=== PATIENT | male | born 1975 | race American Indian/Alaskan Native ===

== ENCOUNTER 2016-10-08 03:03 | Emergency (ER) | payer SELFPAY ==
[2016-10-08] MEDS ORDERED: LEVOPHED DRIP 4 MG/NS 250 ML 4 MG/250 ML BAG IV ONE (03:22)
[2016-10-08] MEDS ORDERED: NACL 0.9% 1000 ML 1,000 ML ONE (03:23)
[2016-10-08] MEDS ORDERED: VERSED IV ONE (03:32)
[2016-10-08] MEDS ORDERED: ARTIFICIAL TEARS OPHTH OINT OU PRN (03:34)
[2016-10-08] MEDS ORDERED: VASELINE LIP THERAPY TP PRN (03:34)
[2016-10-08 03:36] LABS: Basophils % (Auto) 0.5 % (0.0-1.8); Eosinophils % (Auto) 0.2 % (0.0-4.3); Hematocrit 35.4 % (35.5-45.6); Hemoglobin 11.5 gm/dl (11.8-15.2); Mean Corpuscular HGB Conc 33 % (32-34); Mean Corpuscular Hemoglobin 30 pg (28-32); Mean Corpuscular Volume 92 fl (84-94); Red Blood Count 3.86 M/mm3 (3.65-5.03); Red Cell Distribution Width 14.4 % (13.2-15.2); White Blood Count 9.3 K/mm3 (4.5-11.0)
[2016-10-08] MEDS ORDERED: NACL 0.9% 1000 ML 1,000 ML IV ONE ×2 (03:37→04:30)
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
[2016-10-08 03:41] LABS: INR 1.54 (0.87-1.13)
[2016-10-08 03:42] LABS: Partial Thromboplastin Time 49.3 Sec. (24.2-36.6)
[2016-10-08 03:48] LABS: Alanine Aminotransferase 17 units/L (7-56); Albumin 3.3 g/dL (3.9-5); Albumin/Globulin Ratio 1.5 %; Alkaline Phosphatase 35 units/L (35-129); Anion Gap 25 mmol/L; BUN/Creatinine Ratio 6.66; Blood Urea Nitrogen 10 mg/dL (9-20); Calcium 7.6 mg/dL (8.4-10.2); Carbon Dioxide 16 mmol/L (22-30); Chloride 103.6 mmol/L (98-107); Creatine Kinase 623 units/L (55-170); Glucose 180 mg/dL (75-100); Potassium 3.6 mmol/L (3.6-5.0); Sodium 141 mmol/L (137-145); Total Protein 5.5 g/dL (6.3-8.2)
[2016-10-08 03:52] LABS: Platelet Count 129 K/mm3 (140-440)
[2016-10-08] MEDS ORDERED: VERSED IV SCH (04:00)
[2016-10-08] MEDS ORDERED: NACL 0.9% 500 ML IV SCH (04:00)
[2016-10-08] MEDS ORDERED: LEVOPHED DRIP 4 MG/NS 250 ML 4 MG/250 ML BAG IV SCH (04:00)
[2016-10-08] MEDS ORDERED: MIDAZOLAM 100 MG in NACL 0.9% 80 ML IV SCH (04:00)
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
[2016-10-08 04:55] VITALS: BP 104/59
--- NOTE | 2016-10-08 08:52 | XRay Report ---
AP CHEST: HISTORY: Chest pain, trauma No comparison. An endotracheal tube has been inserted which terminates 4 cm superior to the brenna. A nasogastric tube is followed to the fundus of the stomach. Cardiac defibrillator pads are in place. Heart and mediastinal structures are within normal limits. The lungs are clear. No bony deformity is detected. IMPRESSION: Unremarkable AP chest.
== END 2016-10-08 05:00 | disposition other institution (70) ==
LOC: ED 03:03
DX: S01.90XA Unspecified open wound of unspecified part of head, initial encounter (principal); R57.9 Shock, unspecified; I95.9 Hypotension, unspecified; F17.200 Nicotine dependence, unspecified, uncomplicated; W34.00XA Accidental discharge from unspecified firearms or gun, initial encounter; Y93.89 Activity, other specified; Y99.9 Unspecified external cause status; Y92.89 Other specified places as the place of occurrence of the external cause
CPT/HCPCS: 31500; 36415; 36430; 36556; 51702; 70450; 71010; 80053; 82550; 84484; 85025; 85610; 85730; 86850; 86900; 86901; 86920; 99291; G0480; J2250; J7030; J7040; P9016; 80320; 94002